=== PATIENT | female | born 1990 | race Caucasian/White ===

== ENCOUNTER 2023-12-15 16:00 | Outpatient (CLI) | payer SELFPAY | END 2023-12-15 16:01 | disposition home or self-care (01) | LOC: SCSRAD 16:00 | PROVIDERS: ATTEND Emergency Medicine | DX: S92.302A Fracture of unspecified metatarsal bone(s), left foot, initial encounter for closed fracture (principal) ==

== ENCOUNTER 2024-03-26 15:18 | Outpatient (CLI) | payer SELFPAY | END 2024-03-26 15:19 | disposition home or self-care (01) | LOC: ULT 15:18 | PROVIDERS: ATTEND Nurse Practitioner Family | DX: R59.9 Enlarged lymph nodes, unspecified (principal) | CPT/HCPCS: 76536 ==